=== PATIENT | male | born 1995 | race Caucasian/White ===

== ENCOUNTER 2022-07-13 07:09 | Emergency (ER) | payer BC, OTHER ==
[~2022-07-13] VITALS: Ht 175.3 cm; Wt 99.8 kg
[2022-07-13 07:10] VITALS: BP_SYST 153
--- NOTE | 2022-07-13 07:10 | NUR ---
BROUGHT BACK TO BED #4 AND TRIAGED. REPORT GIVEN TO MIRA
--- NOTE | 2022-07-13 07:15 | NUR ---
PT RECEIVED, CARE ASSUMED. PT PRESENTS SELF FOR EVALUATION OF LACERATION TO LEFT HAND, POINTING DIGIT. LACERATION IS APPROX 1 INCH. WRAPPED IN GAUZE. AWAITING TO BE SEEN BE
--- NOTE | 2022-07-13 07:25 | NUR ---
DR BOOTH AT BEDSIDE WITH PT.
[2022-07-13] MEDS ORDERED: NEOM28.36 TP (07:28)
[2022-07-13] MEDS ORDERED: IBUP-1969 PO (07:28)
[2022-07-13] MEDS ORDERED: CEPH-548 PO (07:28)
[2022-07-13] MEDS ORDERED: LIDOCAINE 1% 10 MG/ML, 20 ML MDV INJ ONE (07:30)
[2022-07-13 08:38] VITALS: BP_SYST 138
--- NOTE | 2022-07-13 08:40 | NUR ---
Patient given written and verbal discharge instructions and verbalizes understanding. ER MD discussed with patient the results and treatment provided. Patient in stable condition. ID arm band removed. IV catheter removed intact and dressing applied, no active bleeding. Rx of NEOMYCIN, CEPHALEXIN, IBUPROFEN given. Patient educated on pain management and to follow up with PMD. Pain Scale . Opportunity for questions provided and answered. Medication side effect fact sheet provided.
== END 2022-07-13 08:20 | disposition home or self-care (01) ==
LOC: SED 07:09
DX: S61.211A Laceration without foreign body of left index finger without damage to nail, initial encounter (principal); Z79.899 Other long term (current) drug therapy; X58.XXXA Exposure to other specified factors, initial encounter; Y93.89 Activity, other specified; Y92.89 Other specified places as the place of occurrence of the external cause; Y99.8 Other external cause status
CPT/HCPCS: 99282; 12002; J2001